=== PATIENT | female | born 1995 | race Caucasian/White ===

== ENCOUNTER 2018-03-05 02:13 | Inpatient (IN) | payer OTHER ==
[~2018-03-05] VITALS: Ht 157.5 cm; Wt 73.9 kg
[~2018-03-05 02:13] MED LIST: DSS100 PO; IBUP-2071 PO; PREN1TAB80 PO
[2018-03-05 03:01] VITALS: BP 105/53
[2018-03-05] MEDS ORDERED: RINGERS SOLUTION,LACTATED 1,000 ML IV PRN (05:40)
[2018-03-05] MEDS ORDERED: OXYTOCIN 30 UNITS/LACT RINGERS 500 ML IV ONE (05:40)
[2018-03-05] MEDS ORDERED: METOCLOPRAMIDE HCL 5 MG/ML 2 ML VIAL IVP PRN (05:45)
[2018-03-05] MEDS ORDERED: CITRIC ACID/SODIUM CITRATE 30 ML SOLUTION UDCUP PO PRN (05:45)
[2018-03-05] MEDS ORDERED: METHYLERGONOVINE MALEATE 0.2 MG/ML VIAL IM PRN (05:45)
[2018-03-05] MEDS ORDERED: LIDOCAINE/PF 1% 30 ML VIAL INJ PRN (05:45)
[2018-03-05] MEDS ORDERED: OXYTOCIN 30 UNITS/LACT RINGERS 500 ML IV PRN (05:47)
[2018-03-05 06:14] LABS: BASOPHILS % (AUTO) 0.2 % (0.0-2.0); EOSINOPHILS % (AUTO) 0.4 % (1.0-6.0); HEMATOCRIT 34.4 % (36-46); HEMOGLOBIN 12.3 g/dL (12.0-16.0); LYMPHOCYTES # (AUTO) 1.5 K/uL (1.0-4.8); LYMPHOCYTES % (AUTO) 11.3 % (22.0-44.0); MEAN CORPUSCULAR HEMOGLOBIN 31.5 pg (26.0-34.0); MEAN CORPUSCULAR HGB CONC 35.8 G/dL (31.0-37.0); MEAN CORPUSCULAR VOLUME 88 fL (80-100); MONOCYTES # (AUTO) 0.8 K/uL (0.1-1.0); NEUTROPHILS # (AUTO) 10.7 K/uL (1.8-7.7); NEUTROPHILS % (AUTO) 82.1 % (40.0-70.0); PLATELET COUNT (AUTO)-OB 102 K/uL (150-450); RED BLOOD CELL COUNT(AUTO) 3.91 MIL/uL (4.00-5.20)
[2018-03-05] MEDS: RINGERS SOLUTION,LACTATED 1,000 ML IV SCH ×2 (06:26→08:05)
[2018-03-05] MEDS: FentaNYL CITRATE-PF 100 MCG/2 ML VIAL IVP PRN ×2 (06:40→06:45)
[2018-03-05 07:11] LABS: PLATELET MORPHOLOGY COMMENT LARGE PLTS PRESENT
[2018-03-05] MEDS ORDERED: ROPIVACAINE HCL/PF 0.2% 100 ML ED ONE (07:19)
[2018-03-05] MEDS ORDERED: LIDOCAINE/PF 2% 5 ML VIAL ONE (07:19)
[2018-03-05] MEDS ORDERED: DiphenhydrAMINE HCL 50 MG/ML VIAL IVP PRN (07:45)
[2018-03-05] MEDS ORDERED: ONDANSETRON HCL 4 MG/2 ML VIAL IVP PRN (07:45)
[2018-03-05] MEDS ORDERED: ROPIVACAINE HCL/PF 0.2% 100 ML ED PRN (07:45)
[2018-03-05] MEDS ORDERED: NALBUPHINE HCL 10 MG/ML VIAL IVP PRN (07:45)
[2018-03-05] MEDS ORDERED: OXYGEN THERAPY IH SCH (08:00)
[2018-03-05] MEDS ORDERED: RINGERS SOLUTION,LACTATED 1,000 ML IV ONE ×2 (13:29→13:30)
[2018-03-05] MEDS ORDERED: BENZOCAINE 20%/MENTHOL 56 GM SPRAY CANISTER TP PRN ×2 (13:30)
[2018-03-05] MEDS ORDERED: OxyCODONE HCL/ACETAMINOPHEN 5-325 MG TABLET PO PRN ×4 (13:30)
[2018-03-05] MEDS ORDERED: MEASLES/MUMPS/RUBELLA VACCINE, LIVE 0.5 ML/VIAL SQ ONE ×2 (13:30)
[2018-03-05] MEDS ORDERED: IBUPROFEN 600 MG TABLET PO PRN (13:30)
[2018-03-05] MEDS ORDERED: GLYCERIN/WITCH HAZEL LEAF 40 PADS JAR TP PRN ×2 (13:30)
[2018-03-05] MEDS ORDERED: LANOLIN 7 GM OINTMENT TP PRN ×2 (13:30)
[2018-03-05] MEDS ORDERED: MAGNESIUM HYDROXIDE SUSPENSION 30 ML UDCUP PO SCH ×2 (13:30→21:00)
[2018-03-05] MEDS: IBUPROFEN 600 MG TABLET PO PRN ×2 (16:50→23:21)
[2018-03-06] MEDS ORDERED: ACET-66 PO (13:39)
[2018-03-06] MEDS ORDERED: IBUP-2070 PO (13:41)
[2018-03-06] MEDS ORDERED: DSS100 PO (13:42)
== END 2018-03-06 15:20 | disposition home or self-care (01) | DRG 807 ==
LOC: OBSVTOIN 02:13 → 4S 02:13
PROVIDERS: ADMIT Obstetrics & Gynecology; ATTEND Obstetrics & Gynecology
PROC: 0KQM0ZZ Repair Perineum Muscle, Open Approach (ICD-10-PCS; principal; 2018-03-05)
PROC: 10D07Z6 Extraction of Products of Conception, Vacuum, Via Natural or Artificial Opening (ICD-10-PCS; 2018-03-05)
PROC: 3E0R3BZ Introduction of Anesthetic Agent into Spinal Canal, Percutaneous Approach (ICD-10-PCS; 2018-03-05)
PROC: 00HU33Z Insertion of Infusion Device into Spinal Canal, Percutaneous Approach (ICD-10-PCS; 2018-03-05)
DX: O77.0 Labor and delivery complicated by meconium in amniotic fluid (principal); Z37.0 Single live birth; O70.1 Second degree perineal laceration during delivery; Z3A.40 40 weeks gestation of pregnancy
CPT/HCPCS: 82947; 86850; 86900; 86901; J2590; J2795; J3010; J3490; J7120